=== PATIENT | female | born 1965 | race Caucasian/White ===

== ENCOUNTER → 2016-12-19 | Day surgery (SDC) | payer MEDICARE, MEDICAID ==
[~2016-12-19] VITALS: Ht 167.6 cm; Wt 130.1 kg
[~2016-12-19] MED LIST: *MEPERIDINE 25 MG INJ VIAL PERIprocedural Use ONLY ONE; ACETAMINOPHEN 1000 MG/100 ML VIAL IV ONE; ACETAMINOPHEN/HYDROcodone 325 MG/5 MG TAB PO PRN; BUPIVACAINE HCL PF 0.5% 30 ML VIAL ONE; CEPH-460 PO; CETI10 PO; CHLORHEXIDINE GLUCONATE 2 % 1 PACK (2 CLOTHS) TOPICAL PRN; COUM5TAB PO; DEPA500T3 PO; DEXAMETHASONE SOD PHOS 4 MG/ML VIAL ONE; DIVA250ER PO; DO NOT ADM ANY ANTICOAGULANT DRUGS PRN; DULC100C PO; FAMOTIDINE 20 MG/2 ML VIAL ONE; HYDR-3288 PO; ICOS1CAP PO; INSULIN HUMAN REGULAR 1,000 UNITS/10 ML VIAL SQ PRN; LACTATED RINGER'S 1000 ML INJ 1,000 ML IV ONE; LACTATED RINGER'S 1000 ML IV PRN; LOVA1TAB47 PO; LOVA20TA PO; MEPERIDINE HCL 50 MG/ML VIAL IM PRN; METOPROLOL TARTRATE 25 MG TAB PO PRN; MIDAZOLAM HCL 2 MG/2 ML VIAL ONE; MIRA25TA PO; NEOMYCIN/POLYMYXIN 1 ML G.U. IRRIGANT TOPICAL ONE; NEOSTIGMINE 3 MG/3 ML SYR IV ONE; OMEP20TA PO; ONDANSETRON HCL 4 MG/2 ML VIAL IV PUSH ONE; OXYC30TA62 PO; PHENYLEPH/NS 1000 MCG/10 ML SYR IV ONE; POVIDONE IODINE 5% (ANTISEPSIS KIT) 4 APPLICATIONS EACH NARE PRN; PROP40TA3 PO; PROPOFOL 200 MG/20 ML AMP IV ONE; SERO400T OR; SERO400T PO; SODIUM CHLORID 0.9% 500 ML IV PRN; TOPA100T11 PO; TOPI100 PO; WARF-21 PO; WARF7.5 PO; ceFAZolin 2 GM PREMIX 50 ML IV SCH; ePHEDrine/NS 25 MG/5 ML SYR IV ONE; fentaNYL CITRATE 250 MCG/5 ML AMP ONE
[2016-12-19 08:45] VITALS: BP 115/76; PULSE 75; RESP 20; O2SAT 95
[2016-12-19 09:36] LABS: BASOPHIL # 0.1 TH/MM3 (0-0.2); BASOPHIL % 1.1 % (0.0-2.0); EOSINOPHIL # 0.1 TH/MM3 (0-0.4); HEMATOCRIT 38.2 % (35.0-46.0); HEMO FLAGS DIFF FINAL; LYMPH % 51.9 % (9.0-44.0); MEAN CORPUSCULAR HGB CONC 33.7 % (32.0-36.0); MONO % 10.8 % (0.0-8.0); NEUT % 34.2 % (16.0-70.0); PLATELET COUNT 226 TH/MM3 (150-450); RED BLOOD COUNT 4.29 MIL/MM3 (4.00-5.30); RED CELL DISTRIBUTION WIDTH 13.9 % (11.6-17.2); WHITE BLOOD COUNT 5.7 TH/MM3 (4.0-11.0)
[2016-12-19 09:45] LABS: PROTHROMBIN TIME - PATIENT 10.5 SEC (9.8-11.6)
--- NOTE | 2016-12-19 11:40 | EKG ---
Date Performed: 12/19/2016 Time Performed: 08:48:51 PTAGE: 51 years EKG: Sinus rhythm LOW QRS VOLTAGE IN PRECORDIAL LEADS BORDERLINE ECG NO PREVIOUS TRACING DOCTOR: Ivan Gee Interpretating Date/Time 12/19/2016 11:38:40
[2016-12-19 14:40] VITALS: BP 118/78; PULSE 66; RESP 16; TEMP 96.8; O2SAT 94
--- NOTE | 2016-12-19 16:58 | MP ---
cc: DUANE NANCE III, M.D. DATE OF SURGERY: 12/19/2016. PREOPERATIVE DIAGNOSIS: 1. Left wrist pain. 2. Left wrist scapholunate dissociation, chronic. OPERATIVE PROCEDURE PERFORMED: 1. Left scaphoidectomy and four corner fusion. 2. Left posterior interosseous neurectomy. 3. Use of image intensifier. SURGEON: Duane Nance III, MD. DESCRIPTION OF THE PROCEDURE IN DETAIL: The patient was brought to the operating room and placed supine on the operating table. After the correct site and side of surgery were verified by members of each team in the room multiple times including the patient and myself and after adequate preoperative markings and preoperative written consent were verified by everyone and after adequate upper extremity block was achieved, the left upper extremity was prepped and draped in the traditional sterile surgical fashion. The mini C-arm was used to verify the site of the intended procedure. The limb was elevated and then gently exsanguinated and a highly placed well-padded axillary tourniquet was inflated to 200 mmHg for a total of 90 minutes. A longitudinal incision dorsally was made centered over Jer's tubercle and blunt dissection was then carried out through the subcutaneous tissue. Bipolar electrocautery was used as needed. The extensor retinaculum was then incised between the third and fourth dorsal compartments and the third dorsal arm was opened allowing the extensor pollicis longus tendon to be retracted. The fourth dorsal compartment contents were then retracted ulnarly. An ulnarly-based flap of the wrist capsule was then diagrammed. A 2 cm section of the posterior interosseous nerve was excised. The ulnarly based capsular flap was then opened exposing the proximal and most of the distal rows. Examination revealed the lunate fossa was intact with a normal-appearing cartilage as was the proximal aspect of the lunate. The proximal pole of the capitate however had significant cartilaginous erosion and there was exposed bone. At this point, I decided the best procedure would be the scaphoidectomy and a four-corner fusion. The scaphoid was then exposed and sharp dissection staying on the bone allowed for complete excision of the scaphoid which was then cleared of all its cartilage and cortical bone and cancellus bone used for bone graft. The capitate, hamate, lunate and triquetrum were then arranged in neutral extension and they were then held in place using of 0.045 cm K-wire and this was verified under mini C-arm. The articular surfaces between the four bones were cleared completely of all cartilage exposing cancellus bone in each. Using a [employer] Expode Fusion System using the larger of the two cups, the reamer was placed and used to make the bed for the cup. All of the screw holes were then filled using the mini C-arm to guide their placement. Bone graft was placed between all of the bones and deep to the cup. The mini C-arm was used multiple times throughout this part of this procedure. Passive range of motion and examination was then performed before bones moved as a unit. There was no impingement of the cup exposure posteriorly / dorsally. 60 degrees of motion was easily possible, which was more than the patient's wrist preoperatively. Thorough irrigation was performed with saline multiple times throughout this case. DBX putty was injected underneath deep to the cup. The dorsal two-thirds of the radial styloid was then excised using a rongeur taking care not to disrupt the RSC ligament. Thorough irrigation was performed again. Final x-rays were obtained. The wrist capsule was then closed using interrupted and running 2-0 Ethibond sutures. Thorough irrigation was performed again. The axillary tourniquet was released and the hand and all the fingers on the left became immediately soft, pink and warm and had brisk capillary refill of less than 2 seconds. There was no evidence of any active bleeding at all. The extensor tendons were allowed to fall back in place. The extensor retinaculum was repaired using interrupted 3-0 Ethibond sutures. There were no other anatomic abnormalities identified. Thorough irrigation was performed again. The subcutaneous tissues were reapproximated using deep 3-0 Vicryl sutures and the skin edges reapproximated using running 4-0 nylon suture. The hand and arm were thoroughly cleansed and dried. Betadine and Adaptic dressings were applied followed by a bulky well-padded, well-molded volar immobilizing splint leaving the fingers completely free. The patient was awakened from anesthesia and transported to the post-anesthesia care unit awake and in stable condition at the end of the case. Sponge, needle and instrument counts were correct at the end of the case as reported by the nurses in the room. MD GAUTAM Fraser III /12:58 PM /4:49 PM
== END | disposition home or self-care (01) ==
LOC: HSDC 08:04
PROVIDERS: ATTEND Orthopaedic Surgery Hand Surgery
DX: M25.532 Pain in left wrist (principal); I10 Essential (primary) hypertension; J44.9 Chronic obstructive pulmonary disease, unspecified; E78.5 Hyperlipidemia, unspecified; K21.9 Gastro-esophageal reflux disease without esophagitis; F31.9 Bipolar disorder, unspecified; M19.90 Unspecified osteoarthritis, unspecified site
CPT/HCPCS: 00300; 01830; 25800; 64772; 76000; 85025; 85610; 93005; C1713; J0131; J0690; J1100; J2175; J2250; J2370; J2405; J2710; J3010; J7120

== ENCOUNTER 2016-12-21 20:51 | Emergency (ER) | payer MEDICARE, MEDICAID ==
[~2016-12-21 20:51] MED LIST changes: -*MEPERIDINE 25 MG INJ VIAL PERIprocedural Use ONLY ONE; -ACETAMINOPHEN 1000 MG/100 ML VIAL IV ONE; -ACETAMINOPHEN/HYDROcodone 325 MG/5 MG TAB PO PRN; -BUPIVACAINE HCL PF 0.5% 30 ML VIAL ONE; -CETI10 PO; -CHLORHEXIDINE GLUCONATE 2 % 1 PACK (2 CLOTHS) TOPICAL PRN; -DEPA500T3 PO; -DEXAMETHASONE SOD PHOS 4 MG/ML VIAL ONE; -DO NOT ADM ANY ANTICOAGULANT DRUGS PRN; -DULC100C PO; -FAMOTIDINE 20 MG/2 ML VIAL ONE; -INSULIN HUMAN REGULAR 1,000 UNITS/10 ML VIAL SQ PRN; -LACTATED RINGER'S 1000 ML INJ 1,000 ML IV ONE; -LACTATED RINGER'S 1000 ML IV PRN; -LOVA1TAB47 PO; -MEPERIDINE HCL 50 MG/ML VIAL IM PRN; -METOPROLOL TARTRATE 25 MG TAB PO PRN; -MIDAZOLAM HCL 2 MG/2 ML VIAL ONE; -NEOMYCIN/POLYMYXIN 1 ML G.U. IRRIGANT TOPICAL ONE; -NEOSTIGMINE 3 MG/3 ML SYR IV ONE; -ONDANSETRON HCL 4 MG/2 ML VIAL IV PUSH ONE; -OXYC30TA62 PO; -PHENYLEPH/NS 1000 MCG/10 ML SYR IV ONE; -POVIDONE IODINE 5% (ANTISEPSIS KIT) 4 APPLICATIONS EACH NARE PRN; -PROPOFOL 200 MG/20 ML AMP IV ONE; -SERO400T OR; -SODIUM CHLORID 0.9% 500 ML IV PRN; -TOPI100 PO; -WARF7.5 PO; -ceFAZolin 2 GM PREMIX 50 ML IV SCH; -ePHEDrine/NS 25 MG/5 ML SYR IV ONE; -fentaNYL CITRATE 250 MCG/5 ML AMP ONE
[2016-12-21 20:55] VITALS: BP 182/94; PULSE 99; RESP 20; TEMP 99.7; O2SAT 96
[2016-12-21] MEDS ORDERED: OXYC30TA62 PO (22:26)
--- NOTE | 2016-12-21 22:29 | HHI.PR ---
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
[2016-12-21] MEDS ORDERED: oxyCODONE HCL 20 MG CONTROLLED RELEASE TAB PO ONE (22:30)
--- NOTE | 2016-12-21 22:56 | PD ---
HPI Chief Complaint: Pain: Acute or Chronic Time Seen by Provider: 22:23 Travel History International Travel<30 days: No Contact w/Intl Traveler<30days: No Traveled to known affect area: No History of Present Illness HPI Is a 51-year-old woman presents emergent from complaining of throbbing in her wrist. She recently had surgery with Dr. Nance on December 19, 2 days ago for chronic left wrist scapholunate dissociation where he performed a scaphoid active me and left posterior interosseous neurectomy. She probably called and was having pain and Dr. Nance need to be evaluated her on the weekend and referred her to the emergency department. The dressing was split and she feels more comfortable. He wrote her prescription for OxyContin. Of note patient is also on anticoagulation and has been unable to give herself her Lovenox. She is on Coumadin for previous CVA. History Past Medical History Narrative Medical COPD Previous CVA, on warfarin Hyperlipidemia Hypertension GERD Osteoarthritis Migraines Peripheral neuropathy Seizures Bipolar, depression : 5 Para: 5 Social History Alcohol Use: No Tobacco Use: No Allergies-Medications (Allergen,Severity, Reaction): Coded Allergies: No Known Allergies (Verified , 12/21/16) Reported Meds & Prescriptions Reported Meds & Active Scripts Active Oxycontin (Oxycodone HCl) 30 Mg Tab 30 Mg PO Q12HR Paxinos (Hydrocodone-Acetaminophen) 7.5-325 mg Tab 1 Tab PO Q4H PRN Keflex (Cephalexin) 500 Mg Cap 500 Mg PO Q6H Reported Coumadin (Warfarin) 5 Mg Tab 5 Mg PO EXCEPT WED Warfarin 7.5 Mg Tab 7.5 Mg PO WED Topamax (Topiramate) 100 Mg Tab 100 Mg PO DAILY Seroquel (Quetiapine Fumarate) 400 Mg Tab 400 Mg PO HS Propranolol (Propranolol HCl) 40 Mg Tab 40 Mg PO DAILY Lovastatin 20 Mg Tab 20 Mg PO DAILY Depakote ER (Divalproex Sodium) 250 Mg Lan 750 Mg PO BID Vascepa (Icosapent) 1 Gm Cap 2 Gm PO BID Omeprazole 20 Mg Tab 20 Mg PO DAILY Myrbetriq (Mirabegron) 25 Mg Tab 25 Mg PO DAILY Review of Systems Except as stated in HPI: all other systems reviewed are Neg Physical Exam Narrative GENERAL: Well-appearing 51-year-old woman, no acute distress. SKIN: Warm and dry. CARDIOVASCULAR: Warm and well perfused. RESPIRATORY: Normal rate and effort. MUSCULOSKELETAL: Wrist splinted. NEUROLOGICAL: Awake and alert. No gross deficits. Data Data Last Documented VS Vital Signs Date Time Temp Pulse Resp B/P Pulse Ox O2 Delivery O2 Flow Rate FiO2 12/21/16 22:21 18 12/21/16 20:55 99.7 99 182/94 96 Room Air Orders Prothrombin Time / Inr (Pt) (12/21/16 22:29) Oxycodone Sr (Oxycontin Cr) (12/21/16 22:30) Hydromorphone Pf Inj (Dilaudid Pf Inj) (12/21/16 23:15) Enoxaparin Inj (Lovenox Inj) (12/21/16 23:45) Labs Laboratory Tests Test 12/21/16 21:32 Prothrombin Time 12.4 SEC Prothromb Time International 1.1 RATIO Ratio MDM Medical Decision Making Medical Screen Exam Complete: Yes Emergency Medical Condition: Yes Differential Diagnosis Wrist pain, hypercoagulable state, CVA Narrative Course Medical decision-making 51-year-old woman with a history of wrist injury, status post recent surgery, with what sounds like protein S deficiency and previous CVA is on warfarin. She does be bridging her warfarin with Lovenox shots. She apparently is minimally give herself the shots because of not being abused one arm. We'll check an INR, reassess. FINAL: Supple 51-year-old woman with pain in her left wrist. This is been taking care of. She also has factor protein S deficiency and multiple previous strokes and needs to be on anticoagulation. She cannot give herself her Lovenox injection that she is using the bridge to Coumadin because of her hand surgery and only having one useful hand. She reports there is no one else at home to give her shots. She will need home health come out to give her shots in the interim to prevent stroke. We'll give her a dose here. She reports that Dr. Nance is setting up home health for her. We have no case management right now. I will leave a message for case management, we'll place home health order and [id number]. Diagnosis Primary Impression: Anticoagulated on Coumadin Additional Impression: Scapholunate advanced collapse of left wrist Additional Instructions: Follow-up with case management tomorrow to arrange for home health as discussed. Return to the emergency department for any new or worsening symptoms. Scripts Oxycodone ER (Oxycontin)30 Mg Tab30 Mg PO Q12HR #4 TAB Ref 0 Prov:Duane Nance III, MD 12/21/16 Disposition: 01 DISCHARGE HOME Condition: Stable Shawn Gutierrez MD Dec 21, 2016 22:56
[2016-12-21] MEDS ORDERED: HYDROmorphone HCL PF 1 MG/ML VIAL IM ONE (23:15)
[2016-12-21 23:30] LABS: INTERNATIONAL NORMALIZED RATIO 1.1 RATIO; PROTHROMBIN TIME - PATIENT 12.4 SEC (9.8-11.6)
[2016-12-21] MEDS ORDERED: ENOXAPARIN SODIUM 150 MG/ML SYRINGE SQ ONE (23:45)
--- NOTE | 2016-12-21 23:55 | HHI.FF ---
Face to Face Verification Diagnosis: (1) Scapho-lunate dissociation (2) Protein S deficiency (3) Anticoagulated on Coumadin Home Health Nursing Order: Medical education Instructions: Administer SQ Lovenox I have seen patient Mari Kirk on 12/21/16. My clinical findings support the need for the requested home health care services because: Ltd mobility - disease progression Limited ability to care for self Injectable med education/admin I certify that my clinical findings support that this patient is homebound because: Need for psychosocial assistance Shawn Gutierrez MD Dec 21, 2016 23:55
[2016-12-27] MEDS ORDERED: NORC5TAB PO (09:33)
[2016-12-27] MEDS ORDERED: LEVA500T20 PO (09:33)
== END 2016-12-22 00:05 | disposition home or self-care (01) ==
LOC: NEPC 20:51
DX: I97.89 Other postprocedural complications and disorders of the circulatory system, not elsewhere classified (principal); M21.832 Other specified acquired deformities of left forearm; D68.59 Other primary thrombophilia; Z79.01 Long term (current) use of anticoagulants; I10 Essential (primary) hypertension; E78.5 Hyperlipidemia, unspecified; Z87.09 Personal history of other diseases of the respiratory system; Z86.79 Personal history of other diseases of the circulatory system; Z87.19 Personal history of other diseases of the digestive system; Z87.39 Personal history of other diseases of the musculoskeletal system and connective tissue; Z86.69 Personal history of other diseases of the nervous system and sense organs; Z86.59 Personal history of other mental and behavioral disorders
CPT/HCPCS: 85610; 96372; 99284; J1170; J1650

== ENCOUNTER → 2017-03-18 | Day surgery (SDC) | payer MEDICARE ==
[~2017-03-18] MED LIST changes: +CELE40TA PO; -CEPH-460 PO; +CHLORHEXIDINE GLUCONATE 2 % 1 PACK (2 CLOTHS) TOPICAL PRN; +DIAZ5 PO; +DO NOT ADM ANY ANTICOAGULANT DRUGS PRN; +DULO1CAP3 PO; +EPINEPHrine HCL (1:1000) 1 MG/ML VIAL ONE; -HYDR-3288 PO; +HYDR-3583 PO; +INSULIN HUMAN REGULAR 1,000 UNITS/10 ML VIAL SQ PRN; +LACTATED RINGER'S 1000 ML IV PRN; +LIDOCAINE HCL 1% PF 5 ML AMPULE OTHER ONE; +LIDOCAINE HCL 2% PF SOLN 10 ML VIAL ONE; -LOVA20TA PO; +METOPROLOL TARTRATE 25 MG TAB PO PRN; +POVIDONE IODINE 5% (ANTISEPSIS KIT) 4 APPLICATIONS EACH NARE PRN; +PROPOFOL 200 MG/20 ML AMP IV ONE; +RESP: ALBUTEROL CONC 2.5 MG/0.5 ML NEB ONE; +SERO300T PO; -SERO400T PO; +SODIUM CHLORID 0.9% 500 ML IV PRN; +SODIUM CHLORIDE 0.9% 20 ML VIAL ONE; +SUCCINYLCHOLINE CHLORIDE 100 MG/5 ML SYRINGE IV PUSH ONE
[2017-03-18 07:29] LABS: AUTOMATED NEUTROPHIL # 1.9 TH/MM3 (1.8-7.7); BASOPHIL # 0.1 TH/MM3 (0-0.2); BASOPHIL % 1.2 % (0.0-2.0); EOSINOPHIL # 0.2 TH/MM3 (0-0.4); EOSINOPHIL % 2.5 % (0.0-4.0); HEMO FLAGS DIFF FINAL; LYMPH % 57.2 % (9.0-44.0); LYMPHOCYTE # 3.5 TH/MM3 (1.0-4.8); MEAN CORPUSCULAR HEMOGLOBIN 30.4 PG (27.0-34.0); MEAN CORPUSCULAR HGB CONC 33.8 % (32.0-36.0); MONO % 8.3 % (0.0-8.0); NEUT % 30.8 % (16.0-70.0); PLATELET COUNT 198 TH/MM3 (150-450); RED BLOOD COUNT 4.77 MIL/MM3 (4.00-5.30); RED CELL DISTRIBUTION WIDTH 13.5 % (11.6-17.2); WHITE BLOOD COUNT 6.1 TH/MM3 (4.0-11.0)
[2017-03-18 07:37] LABS: APTT (PATIENT) 29.2 SEC (24.3-30.1); PROTHROMBIN TIME - PATIENT 11.5 SEC (9.8-11.6)
--- NOTE | 2017-03-18 09:51 | MR ---
cc: ROMARIO DOSS M.D. DATE 03/18/2017 PROCEDURE PERFORMED Fiberoptic bronchoscopy flexible REASON FOR BRONCHOSCOPY Upper airway obstruction suspect, excess mucoid secretion and plugging. PROCEDURE Fiberoptic bronchoscopy performed via LMA. Vocal cords intact. Trachea mildly hyperemic, some mild posterior narrowing in the upper trachea is noted, however, not significant. The roxy is sharp. The right mainstem bronchus, right upper, middle and lower lobe, left main bronchus, left upper lower lobe inspected. No obstruction or mass lesion seen. Mucous plugs thick whitish in color removed. Procedure well tolerated. Washings obtained from both sides of the tracheobronchial tree for routine TB, fungal cultures, as well as cytological exam. The patient transferred to the recovery room in stable condition. IMPRESSION 1. Moderate tracheobronchitis 2. Excess mucoid secretion and plugging. 3. No significant upper airway obstruction. 4. Procedure well tolerated. 5. The patient transferred to recovery in stable condition. Romario Doss MD WWW/WILLIAM /9:35 AM /9:41 AM
--- NOTE | 2017-03-18 10:03 | EKG ---
Date Performed: 03/18/2017 Time Performed: 07:55:38 PTAGE: 51 years EKG: SINUS BRADYCARDIA BORDERLINE ECG PREVIOUS TRACING : 12/19/2016 08.48 Compared to prior tracing no significant change DOCTOR: Yimi Maurer Interpretating Date/Time 03/18/2017 10:00:00
[2017-03-18 10:47] VITALS: BP 120/80; PULSE 79; RESP 20; TEMP 97; O2SAT 96
== END | disposition home or self-care (01) ==
LOC: HSDC 06:19
PROVIDERS: ATTEND Internal Medicine Sleep Medicine
DX: J40 Bronchitis, not specified as acute or chronic (principal); R00.1 Bradycardia, unspecified; I10 Essential (primary) hypertension; E78.5 Hyperlipidemia, unspecified; J44.9 Chronic obstructive pulmonary disease, unspecified; G47.33 Obstructive sleep apnea (adult) (pediatric); K21.9 Gastro-esophageal reflux disease without esophagitis; F32.9 Major depressive disorder, single episode, unspecified; Z79.899 Other long term (current) drug therapy; Z79.01 Long term (current) use of anticoagulants
CPT/HCPCS: 85025; 85610; 85730; 87015; 87070; 87102; 87116; 87205; 87206; 88112; 88305; 93005; 94664; J0171; J0330; J3010; J7120; J7611

== ENCOUNTER → 2017-06-16 | Outpatient (CLI) | payer MEDICARE ==
[~2017-06-16] MED LIST changes: -CHLORHEXIDINE GLUCONATE 2 % 1 PACK (2 CLOTHS) TOPICAL PRN; +CYMB60CA PO; -DO NOT ADM ANY ANTICOAGULANT DRUGS PRN; -EPINEPHrine HCL (1:1000) 1 MG/ML VIAL ONE; -INSULIN HUMAN REGULAR 1,000 UNITS/10 ML VIAL SQ PRN; -LACTATED RINGER'S 1000 ML IV PRN; -LIDOCAINE HCL 1% PF 5 ML AMPULE OTHER ONE; -LIDOCAINE HCL 2% PF SOLN 10 ML VIAL ONE; -METOPROLOL TARTRATE 25 MG TAB PO PRN; -OMEP20TA PO; +OMEP20TA93 PO; -POVIDONE IODINE 5% (ANTISEPSIS KIT) 4 APPLICATIONS EACH NARE PRN; -PROPOFOL 200 MG/20 ML AMP IV ONE; -RESP: ALBUTEROL CONC 2.5 MG/0.5 ML NEB ONE; -SODIUM CHLORID 0.9% 500 ML IV PRN; -SODIUM CHLORIDE 0.9% 20 ML VIAL ONE; -SUCCINYLCHOLINE CHLORIDE 100 MG/5 ML SYRINGE IV PUSH ONE; -TOPA100T11 PO; +TOPI100 PO
[2017-06-16 10:59] LABS: ALBUMIN 3.7 GM/DL (3.4-5.0); ALT (GPT) 29 U/L (10-53); AST (GOT) 12 U/L (15-37); BICARBONATE 26.2 MEQ/L (21.0-32.0); BLOOD UREA NITROGEN 13 MG/DL (7-18); CALCIUM 9.3 MG/DL (8.5-10.1); CHLORIDE 107 MEQ/L (98-107); GLOMERULAR FILTRATION RATE 88 ML/MIN (>89); GLUCOSE,FASTING 90 MG/DL (74-99); SODIUM (NA) 140 MEQ/L (136-145)
[2017-06-16 11:02] LABS: ALKALINE PHOSPHATASE 72 U/L (45-117); TOTAL BILIRUBIN ADULT 0.2 MG/DL (0.2-1.0); TOTAL PROTEIN 7.8 GM/DL (6.4-8.2)
== END ==
LOC: CLAB 10:08
PROVIDERS: ATTEND Podiatrist Primary Podiatric Medicine
DX: B35.1 Tinea unguium (principal); Z51.81 Encounter for therapeutic drug level monitoring
CPT/HCPCS: 36415; 80053

== ENCOUNTER → 2017-06-30 | Outpatient (CLI) | payer MEDICARE, OTHER ==
[2017-06-30 08:43] LABS: AUTOMATED NEUTROPHIL # 3.6 TH/MM3 (1.8-7.7); BASOPHIL # 0.1 TH/MM3 (0-0.2); BASOPHIL % 1.1 % (0.0-2.0); EOSINOPHIL # 0.2 TH/MM3 (0-0.4); EOSINOPHIL % 2.3 % (0.0-4.0); HEMATOCRIT 40.2 % (35.0-46.0); HEMO FLAGS DIFF FINAL; HEMOGLOBIN 13.5 GM/DL (11.6-15.3); LYMPHOCYTE # 3.8 TH/MM3 (1.0-4.8); MEAN CELL VOLUME 92.3 FL (80.0-100.0); MEAN CORPUSCULAR HGB CONC 33.6 % (32.0-36.0); MEAN PLATELET VOLUME 7.4 FL (7.0-11.0); MONOCYTE # 0.6 TH/MM3 (0-0.9); NEUT % 43.6 % (16.0-70.0); PLATELET COUNT 229 TH/MM3 (150-450); RED BLOOD COUNT 4.36 MIL/MM3 (4.00-5.30); RED CELL DISTRIBUTION WIDTH 13.6 % (11.6-17.2); WHITE BLOOD COUNT 8.3 TH/MM3 (4.0-11.0)
[2017-06-30 08:48] LABS: APTT (PATIENT) 37.8 SEC (24.3-30.1); INTERNATIONAL NORMALIZED RATIO 2.2 RATIO; PROTHROMBIN TIME - PATIENT 22.2 SEC (9.8-11.6)
[2017-06-30 10:24] LABS: ALKALINE PHOSPHATASE 62 U/L (45-117); HDL CHOLESTEROL 32.9 MG/DL (40.0-60.0); TOTAL BILIRUBIN ADULT 0.2 MG/DL (0.2-1.0); TOTAL PROTEIN 7.7 GM/DL (6.4-8.2); TRIGLYCERIDES 292 MG/DL (42-150)
[2017-06-30 10:29] LABS: ALBUMIN 3.5 GM/DL (3.4-5.0); ALT (GPT) 19 U/L (10-53); ANION GAP 7 MEQ/L (5-15); AST (GOT) 30 U/L (15-37); BICARBONATE 27.5 MEQ/L (21.0-32.0); BLOOD UREA NITROGEN 19 MG/DL (7-18); CALCIUM 8.5 MG/DL (8.5-10.1); CHLORIDE 108 MEQ/L (98-107); CHOLESTEROL 207 MG/DL (120-200); CHOLESTEROL/ HDL RATIO 6.29 RATIO; CREATININE 0.64 MG/DL (0.50-1.00); GLOMERULAR FILTRATION RATE 97 ML/MIN (>89); GLUCOSE,FASTING 89 MG/DL (74-99); LDL CHOLESTEROL 116 MG/DL (0-99); POTASSIUM 4.5 MEQ/L (3.5-5.1); SODIUM (NA) 142 MEQ/L (136-145)
[2017-06-30 16:49] LABS: HEMOGLOBIN A1C 5.6 % (4.3-6.0); HEMOGLOBIN A1a 1.1 %; HEMOGLOBIN Ao 84.8 %; HEMOGLOBIN F 1.3 %; HEMOGLOBIN P3 3.8 %
== END ==
LOC: HCAV 07:40
DX: Z01.810 Encounter for preprocedural cardiovascular examination (principal); I10 Essential (primary) hypertension; R73.01 Impaired fasting glucose; E78.2 Mixed hyperlipidemia; E66.01 Morbid (severe) obesity due to excess calories
CPT/HCPCS: 36415; 80053; 80061; 83036; 85025; 85610; 85730; 93005

== ENCOUNTER → 2017-07-15 | Outpatient (CLI) | payer MEDICARE, MEDICAID ==
[~2017-07-15] MED LIST changes: +BACT800T5 PO; -CELE40TA PO; +CEPH-460 PO; +ENOX30P SQ; +PERC10TA27 PO
[2017-07-17 02:06] LABS: URINE ANABASINE <2.0 ng/mL (<2.0); URINE COTININE <5.0 ng/mL (<5.0); URINE NICOTINE <5.0 ng/mL (<5.0); URINE NORNICOTINE <2.0 ng/mL (<2.0)
== END ==
LOC: CPRE 13:05
PROVIDERS: ATTEND Podiatrist Primary Podiatric Medicine
DX: Z01.812 Encounter for preprocedural laboratory examination (principal); M20.5X2 Other deformities of toe(s) (acquired), left foot
CPT/HCPCS: 80323; G0480

== ENCOUNTER → 2017-07-18 | Day surgery (SDC) | payer MEDICARE, MEDICAID ==
[~2017-07-18] VITALS: Ht 167.6 cm; Wt 121.8 kg
[~2017-07-18] MED LIST changes: +*morphine SULFATE 10 MG/ML PERIprocedure ONLY ONE; +ACETAMINOPHEN 1000 MG/100 ML 100 ML IV ONE; -BACT800T5 PO; +BUPIVACAINE HCL PF 0.5% 30 ML VIAL ONE; -CEPH-460 PO; +CHLORHEXIDINE GLUCONATE 2 % 1 PACK (2 CLOTHS) TOPICAL PRN; -CYMB60CA PO; +DEXAMETHASONE SOD PHOS 4 MG/ML VIAL IV ONE; +DO NOT ADM ANY ANTICOAGULANT DRUGS PRN; +FAMOTIDINE 20 MG/2 ML VIAL ONE; -HYDR-3583 PO; +IBUPROFEN 400 MG TAB PO PRN; +INSULIN HUMAN REGULAR 1,000 UNITS/10 ML VIAL SQ PRN; +LACTATED RINGER'S 1000 ML IV PRN; +LIDOCAINE HCL 1% PF 5 ML SYRINGE OTHER ONE; +METOPROLOL TARTRATE 25 MG TAB PO PRN; +MIDAZOLAM HCL 2 MG/2 ML VIAL ONE; +MORPHINE SULFATE 2 MG/ML INJ IV PUSH PRN; +MORPHINE SULFATE 4 MG/ML INJ ONE; +NALOXONE HCL 0.4 MG/ML AMP IV PUSH PRN; +ONDANSETRON HCL 4 MG/2 ML VIAL IV ONE; +POVIDONE IODINE 5% (ANTISEPSIS KIT) 4 APPLICATIONS EACH NARE PRN; +PROPOFOL 200 MG/20 ML AMP IV ONE; +Post-op Orders (for Pharmacy) XX ONE; +SODIUM CHLORID 0.9% 500 ML IV PRN; +SODIUM CHLORIDE 0.9% FLUSH 10 ML FLUSH IV FLUSH PRN; +SODIUM CHLORIDE 0.9% FLUSH 10 ML FLUSH IV FLUSH SCH; +ceFAZolin 2 GM PREMIX 50 ML IV SCH; +oxyCODONE/ACETAMINOPHEN 10 MG/325 MG TAB PO PRN; +oxyCODONE/ACETAMINOPHEN 5 MG/325 MG TAB PO PRN
[2017-07-18 08:06] LABS: INTERNATIONAL NORMALIZED RATIO 1.2 RATIO; PROTHROMBIN TIME - PATIENT 11.8 SEC (9.8-11.6)
--- NOTE | 2017-07-18 10:03 | PD.OP ---
Operative Report Date of Surgery: Jul 18, 2017 Preoperative Diagnosis: (1) Hallux limitus of left foot Postoperative Diagnosis: (1) Hallux limitus of left foot Procedure: Mathur bunionectomy left foot Anesthesia: General inhalation Surgeon: Pepe Kothari D.P.M. Clinical Research Associate(s): LAI Operation and Findings: Patient is brought to the OR and placed on the OR table in a supine position. A pneumatic ankle cuff was placed around the left ankle after adequate wearable padding. Patient was given general inhalation anesthesia. The left foot was prepped and draped in the usual sterile manner. The left foot was elevated above the operating table for a period of 3 minutes and the pneumatic ankle cuff was inflated to 250 mmHg. The left foot was lowered to the operating table and attention was directed to the left first MPJ. It was noted that the patient had a bunion deformity and grinding and crepitus at the first MPJ consistent with degenerative joint disease. At this time a 7 cm linear incision was made medial to the extensor hallucis longus tendon on the dorsal medial aspect of the left foot. The incision was deepened using sharp and blunt dissection taking care to tie off any superficial bleeding vessels and retracting all vital structures. Incision was deepened to the capsule and periosteum of the first MPJ ureters and using sharp and blunt dissection the first MPJ was freed up and delivered into the wound. Using an oscillating saw the first third of the proximal phalanx base wasf dissected and removed from the surgical site. Should be noted now that the first MPJ had free range of motion without any crepitus. Attention was directed to the dorsal medial bony eminence on the head of the first metatarsal and using an oscillating saw the bony eminence was resected. The area was flushed with copious amounts of sterile saline. Should be noted the hallux sat in a more correct anatomical position with good range of motion at the MPJ. Subcutaneous and capsular edges were closed with 2-0 Vicryl. Skin edges were reapproximated and closed with 3- 0 nylon. Estimated blood loss was less than 5 cc. The pneumatic ankle cuff was deflated and it should be noted that the vascular status returned to all digits of the left foot. Surgical cuff time was noted to be 33 minutes. Sponge and instrument count were noted to be correct. The surgical site was infiltrated with 20 cc of 0.5% Marcaine plain for postoperative anesthesia. The surgical incision site was dressed with Adaptic 4 x 4's and Js followed by an Nadir wrap. Patient tolerated the procedures and anesthesia well and left the OR to PACU in apparent satisfactory conditions without vital signs stable and the vascular status intact to all digits of the left foot. Pepe Kothari DPM Jul 18, 2017 10:03
--- NOTE | 2017-07-18 11:02 | RADRPT ---
EXAM DATE/TIME: 07/18/2017 10:10 [facility] COMPARISON: No previous studies available for comparison. INDICATIONS : Post op left foot surgery. MEDICAL HISTORY : None. SURGICAL HISTORY : None. ENCOUNTER: Initial ACUITY: 1 day PAIN SCORE: 8/10 LOCATION: Left Foot. FINDINGS: Postop resection portion of the proximal phalanx first toe. No radiopaque foreign bodies. CONCLUSION: Postoperative changes as above. Nirmal Tellez MD FACR on July 18, 2017 at 10:59 Board Certified Radiologist. This report was verified electronically.
[2017-07-18 11:30] VITALS: BP 140/80; PULSE 73; RESP 20; TEMP 96.9; O2SAT 96
== END | disposition home or self-care (01) ==
LOC: HSDC 06:36
PROVIDERS: ATTEND Podiatrist Primary Podiatric Medicine
DX: M20.5X2 Other deformities of toe(s) (acquired), left foot (principal); Z79.01 Long term (current) use of anticoagulants; Z79.899 Other long term (current) drug therapy
CPT/HCPCS: 01480; 28292; 73630; 85610; J0131; J1100; J2250; J2270; J2405; J3010; J7120; L3260

== ENCOUNTER 2017-07-24 17:28 | Emergency (ER) | payer MEDICARE, MEDICAID ==
[~2017-07-24] VITALS: Ht 165.1 cm; Wt 120.0 kg
[~2017-07-24 17:28] MED LIST changes: -*morphine SULFATE 10 MG/ML PERIprocedure ONLY ONE; -ACETAMINOPHEN 1000 MG/100 ML 100 ML IV ONE; -BUPIVACAINE HCL PF 0.5% 30 ML VIAL ONE; -CHLORHEXIDINE GLUCONATE 2 % 1 PACK (2 CLOTHS) TOPICAL PRN; -DEXAMETHASONE SOD PHOS 4 MG/ML VIAL IV ONE; -DO NOT ADM ANY ANTICOAGULANT DRUGS PRN; -FAMOTIDINE 20 MG/2 ML VIAL ONE; -IBUPROFEN 400 MG TAB PO PRN; -INSULIN HUMAN REGULAR 1,000 UNITS/10 ML VIAL SQ PRN; -LACTATED RINGER'S 1000 ML IV PRN; -LIDOCAINE HCL 1% PF 5 ML SYRINGE OTHER ONE; -METOPROLOL TARTRATE 25 MG TAB PO PRN; -MIDAZOLAM HCL 2 MG/2 ML VIAL ONE; -MORPHINE SULFATE 2 MG/ML INJ IV PUSH PRN; -MORPHINE SULFATE 4 MG/ML INJ ONE; -NALOXONE HCL 0.4 MG/ML AMP IV PUSH PRN; -ONDANSETRON HCL 4 MG/2 ML VIAL IV ONE; -POVIDONE IODINE 5% (ANTISEPSIS KIT) 4 APPLICATIONS EACH NARE PRN; -PROPOFOL 200 MG/20 ML AMP IV ONE; -Post-op Orders (for Pharmacy) XX ONE; -SODIUM CHLORID 0.9% 500 ML IV PRN; -SODIUM CHLORIDE 0.9% FLUSH 10 ML FLUSH IV FLUSH PRN; -SODIUM CHLORIDE 0.9% FLUSH 10 ML FLUSH IV FLUSH SCH; -ceFAZolin 2 GM PREMIX 50 ML IV SCH; -oxyCODONE/ACETAMINOPHEN 10 MG/325 MG TAB PO PRN; -oxyCODONE/ACETAMINOPHEN 5 MG/325 MG TAB PO PRN
[2017-07-24 17:30] VITALS: BP 125/94; PULSE 81; RESP 16; TEMP 98.8; O2SAT 95
[2017-07-24 20:16] VITALS: BP 135/92; PULSE 79; RESP 22; TEMP 98.8; O2SAT 97
[2017-07-24] MEDS ORDERED: MORPHINE SULFATE 2 MG/ML INJ IV PUSH ONE (21:00)
[2017-07-24] MEDS ORDERED: SODIUM CHLORIDE 0.9% FLUSH 10 ML FLUSH IVF PRN (21:00)
--- NOTE | 2017-07-24 21:07 | PD ---
HPI Chief Complaint: Pain: Acute or Chronic Time Seen by Provider: 20:40 Travel History International Travel<30 days: No Contact w/Intl Traveler<30days: No Traveled to known affect area: No History of Present Illness HPI Patient 52-year-old female had a bone spur operated on [address] Kothari and since initial surgery she had some pain but the pain is gradually gotten progressively worse over the past few days, she called Dr. Kothari's office and he apparently is on extended leave of absence. Patient states the pain is all around her left great toe at the incision she is also noticed some redness and swelling. No fevers, no red streaks of the legs, no leg swelling, no chest pain or shortness of breath. PFSH Past Medical History Asthma: Yes Bipolar Disorder: Yes Anxiety: Yes Cancer: Yes (hx of cervical cancer) Cardiovascular Problems: No COPD: Yes Cerebrovascular Accident: Yes (X2) Diabetes: No Diminished Hearing: No Endocrine: No Gastrointestinal Disorders: Yes (reflux; IBS) GERD: Yes Genitourinary: Yes (INCONT. FROM MESH IMPLANT) Hepatitis: No Hiatal Hernia: Yes Immune Disorder: No Musculoskeletal: Yes (OA) Neurologic: Yes (SEIZURES, 2 STROKES POOR MEMORY ) Psychiatric: Yes (OCD,. BIPOLAR, ANXIETY, DEPRESSION) Reproductive: No Respiratory: Yes (COPD, CHRONIC COUGH) Immunizations Current: Yes Seizures: Yes Thyroid Disease: No : 5 Para: 5 Miscarriage: 0 : 0 Past Surgical History Abdominal Surgery: No AICD: No Body Medical Devices: LEFT LEG BERTA AND PLATE, BLADDER MESH, L WRIST HARDWARE Cardiac Surgery: No Section: Yes (X 5) Ear Surgery: No Endocrine Surgery: No Eye Surgery: No Genitourinary Surgery: Yes (BLADDER REPAIR WITH MESH IMPLANTS) Gynecologic Surgery: Yes (total hysterectomy,novasure ablation, X5) Joint Replacement: No Oral Surgery: No Pacemaker: No Thoracic Surgery: No Other Surgery: Yes Social History Alcohol Use: No Tobacco Use: No Substance Use: Yes (MARIJUANA) Allergies-Medications (Allergen,Severity, Reaction): Coded Allergies: adhesive tape (Verified Allergy, Unknown, paper tape, 07/24/17) Reported Meds & Prescriptions Reported Meds & Active Scripts Active Percocet (Oxycodone-Acetaminophen) 10-325 mg Tab 1 Tab PO Q6H PRN Keflex (Cephalexin) 500 Mg Cap 500 Mg PO Q6H 10 Days Bactrim DS (Sulfamethoxazole-Trimethoprim) 800-160 Mg Tab 1 Tab PO BID 10 Days Percocet (Oxycodone-Acetaminophen) 10-325 mg Tab 1 Tab PO Q4H PRN Reported Valium (Diazepam) 5 Mg Tab 5 Mg PO TID PRN Duloxetine DR (Duloxetine HCl) 60 Mg Capdr 60 Mg PO DAILY Seroquel (Quetiapine Fumarate) 300 Mg Tab 600 Mg PO HS Coumadin (Warfarin) 5 Mg Tab 5 Mg PO EXCEPT WED Warfarin 7.5 Mg Tab 7.5 Mg PO WED Topamax (Topiramate) 100 Mg Tab 100 Mg PO BID Propranolol (Propranolol HCl) 40 Mg Tab 40 Mg PO BID Depakote ER (Divalproex Sodium) 250 Mg Lan 750 Mg PO BID Vascepa (Icosapent) 1 Gm Cap 2 Gm PO BID Omeprazole 20 Mg Tab 20 Mg PO DAILY Myrbetriq (Mirabegron) 25 Mg Tab 25 Mg PO DAILY Review of Systems Except as stated in HPI: all other systems reviewed are Neg Physical Exam Narrative GENERAL: Well-developed, well-nourished, appears uncomfortable but nontoxic. SKIN: Focused skin assessment warm/dry. On the dorsum of her left foot over the great toe there are several stitches in place, there is some mild edema of the skin as well as some erythema consistent with a mild to moderate cellulitis , she is appropriately tender to palpation, Refill is brisk in all digits of the lower extremity, the skin is dirty appears as though she is not taking great hygiene. HEAD: Atraumatic. Normocephalic. EYES: Pupils equal and round. No scleral icterus. No injection or drainage. ENT: No nasal bleeding or discharge. Mucous membranes pink and moist. NECK: Trachea midline. No JVD. CARDIOVASCULAR: Regular rate and rhythm. No murmur appreciated. RESPIRATORY: No accessory muscle use. Clear to auscultation. Breath sounds equal bilaterally. GASTROINTESTINAL: Abdomen soft, non-tender, nondistended. Hepatic and splenic margins not palpable. MUSCULOSKELETAL: No obvious deformities. No clubbing. No cyanosis. No edema. NEUROLOGICAL: Awake and alert. No obvious cranial nerve deficits. Motor grossly within normal limits. Normal speech. PSYCHIATRIC: Appropriate mood and affect; insight and judgment normal. Data Data Last Documented VS Vital Signs Date Time Temp Pulse Resp B/P (MAP) Pulse Ox O2 Delivery O2 Flow Rate FiO2 07/24/17 23:18 07/24/17 20:16 98.8 79 22 97 Room Air Orders Orders Complete Blood Count With Diff (07/24/17 20:51) Comprehensive Metabolic Panel (07/24/17 20:51) Westergren Sedimentation Rate (07/24/17 20:51) C-Reactive Protein (Crp) (07/24/17 20:51) Prothrombin Time / Inr (Pt) (07/24/17 20:51) Act Partial Throm Time (Ptt) (07/24/17 20:51) Ecg Monitoring (07/24/17 20:51) Iv Access Insert/Monitor (07/24/17 20:51) Oximetry (07/24/17 20:51) Sodium Chloride 0.9% Flush (Ns Flush) (07/24/17 21:00) Morphine Inj (Morphine Inj) (07/24/17 21:00) Ed Discharge Order (07/24/17 22:39) Labs Laboratory Tests Test 07/24/17 21:00 White Blood Count 6.7 TH/MM3 Red Blood Count 4.70 MIL/MM3 Hemoglobin 14.3 GM/DL Hematocrit 42.2 % Mean Corpuscular Volume 89.8 FL Mean Corpuscular Hemoglobin 30.5 PG Mean Corpuscular Hemoglobin Concent 34.0 % Red Cell Distribution Width 13.2 % Platelet Count 278 TH/MM3 Mean Platelet Volume 7.7 FL Neutrophils (%) (Auto) 38.8 % Lymphocytes (%) (Auto) 50.0 % Monocytes (%) (Auto) 7.3 % Eosinophils (%) (Auto) 3.0 % Basophils (%) (Auto) 0.9 % Neutrophils # (Auto) 2.6 TH/MM3 Lymphocytes # (Auto) 3.4 TH/MM3 Monocytes # (Auto) 0.5 TH/MM3 Eosinophils # (Auto) 0.2 TH/MM3 Basophils # (Auto) 0.1 TH/MM3 CBC Comment DIFF FINAL Differential Comment Erythrocyte Sedimentation Rate 13 mm/hr Prothrombin Time 24.4 SEC Prothromb Time International Ratio 2.4 RATIO Activated Partial Thromboplast Time 37.4 SEC Blood Urea Nitrogen 11 MG/DL Creatinine 0.69 MG/DL Random Glucose 95 MG/DL Total Protein 8.0 GM/DL Albumin 3.7 GM/DL Calcium Level 9.1 MG/DL Alkaline Phosphatase 66 U/L Aspartate Amino Transf (AST/SGOT) 14 U/L Alanine Aminotransferase (ALT/SGPT) 22 U/L Total Bilirubin 0.2 MG/DL Sodium Level 139 MEQ/L Potassium Level 3.8 MEQ/L Chloride Level 108 MEQ/L Carbon Dioxide Level 22.8 MEQ/L Anion Gap 8 MEQ/L Estimat Glomerular Filtration Rate 89 ML/MIN C-Reactive Protein 0.98 MG/DL [facility] Medical Decision Making Medical Screen Exam Complete: Yes Emergency Medical Condition: Yes Differential Diagnosis Cellulitis, postoperative pain, postoperative infection, normal wound healing, osteomyelitis unlikely. Narrative Course Patient room in the emergency department complaint symptoms consistent with a mild to moderate cellulitis and postoperative wound infection, patient's labs are wholly reassuring, ESR and CRP are normal, counts are normal. Given narcotics and is feeling better, the patient was discussed briefly with Dr. Haro and I discussed that it looks like a mild cellulitis, she is not in the same practice as Dr. Kothari and states that Dr. Cortez is covering for some of his patients as he is out on sick leave. Discussed this with the patient and recommended outpatient antibiotics and follow-up with the below providers. Discussed returning to criterion symptomatic management. She is stable for discharge Diagnosis Primary Impression: Post-operative pain Additional Impression: Cellulitis, toe Referrals: Angie Hurtado MD, Laura M. DPM Additional Instructions: Follow-up with Dr. Hurtado by phone in the morning, she is helping out with Dr. Kothari patient's. You should also call Dr. Kothari's office for further instructions. You can also try Dr. Haro's office. Med/Other Pt SpecificInfo: Prescription(s) given Scripts Oxycodone-Acetaminophen (Percocet) 10-325 mg Tab 1 TAB PO Q6H Y for PAIN, #10 TAB 0 Refills Prov: Chandana Pearce MD 07/24/17 Cephalexin (Keflex) 500 Mg Cap 500 MG PO Q6H for Infection for 10 Days, #40 CAP 0 Refills Prov: Chandana Pearce MD 07/24/17 Sulfamethoxazole-Trimethoprim (Bactrim DS) 800-160 Mg Tab 1 TAB PO BID for Infection for 10 Days, #20 TAB 0 Refills Prov: Chandana Pearce MD 07/24/17 Disposition: 01 DISCHARGE HOME Condition: Stable Chandana Pearce MD Jul 24, 2017 21:07
[2017-07-24 21:16] LABS: AUTOMATED NEUTROPHIL # 2.6 TH/MM3 (1.8-7.7); BASOPHIL # 0.1 TH/MM3 (0-0.2); BASOPHIL % 0.9 % (0.0-2.0); EOSINOPHIL # 0.2 TH/MM3 (0-0.4); HEMATOCRIT 42.2 % (35.0-46.0); HEMOGLOBIN 14.3 GM/DL (11.6-15.3); LYMPHOCYTE # 3.4 TH/MM3 (1.0-4.8); MEAN CELL VOLUME 89.8 FL (80.0-100.0); MEAN CORPUSCULAR HEMOGLOBIN 30.5 PG (27.0-34.0); MEAN PLATELET VOLUME 7.7 FL (7.0-11.0); MONO % 7.3 % (0.0-8.0); MONOCYTE # 0.5 TH/MM3 (0-0.9); NEUT % 38.8 % (16.0-70.0); PLATELET COUNT 278 TH/MM3 (150-450); RED CELL DISTRIBUTION WIDTH 13.2 % (11.6-17.2); WHITE BLOOD COUNT 6.7 TH/MM3 (4.0-11.0)
[2017-07-24 21:34] LABS: INTERNATIONAL NORMALIZED RATIO 2.4 RATIO; PROTHROMBIN TIME - PATIENT 24.4 SEC (9.8-11.6)
[2017-07-24 21:42] LABS: ALBUMIN 3.7 GM/DL (3.4-5.0); AST (GOT) 14 U/L (15-37); BICARBONATE 22.8 MEQ/L (21.0-32.0); BLOOD UREA NITROGEN 11 MG/DL (7-18); CALCIUM 9.1 MG/DL (8.5-10.1); CHLORIDE 108 MEQ/L (98-107); CREATININE 0.69 MG/DL (0.50-1.00); GLOMERULAR FILTRATION RATE 89 ML/MIN (>89); GLUCOSE,RANDOM 95 MG/DL (74-106); SODIUM (NA) 139 MEQ/L (136-145)
[2017-07-24 21:43] LABS: ALT (GPT) 22 U/L (10-53); C-REACTIVE PROTEIN 0.98 MG/DL (0.00-0.30)
[2017-07-24 21:45] LABS: ALKALINE PHOSPHATASE 66 U/L (45-117); TOTAL BILIRUBIN ADULT 0.2 MG/DL (0.2-1.0)
[2017-07-24] MEDS ORDERED: CEPH-460 PO (22:38)
[2017-07-24] MEDS ORDERED: BACT800T5 PO (22:38)
[2017-07-24] MEDS ORDERED: PERC10TA27 PO (22:38)
--- NOTE | 2017-07-26 00:22 | EKG ---
Date Performed: 07/24/2017 Time Performed: 21:33:31 PTAGE: 52 years EKG: Sinus rhythm NORMAL ECG Since the prior tracing, there has been no significant change DOCTOR: Stacy Martines Interpretating Date/Time 07/26/2017 00:21:29
== END 2017-07-24 23:37 | disposition home or self-care (01) ==
LOC: NEPD 17:28
DX: G89.18 Other acute postprocedural pain (principal); L03.032 Cellulitis of left toe; R56.9 Unspecified convulsions; K21.9 Gastro-esophageal reflux disease without esophagitis; J44.9 Chronic obstructive pulmonary disease, unspecified; F12.90 Cannabis use, unspecified, uncomplicated; I25.2 Old myocardial infarction; F41.8 Other specified anxiety disorders; R05 Cough
CPT/HCPCS: 80053; 85025; 85610; 85652; 85730; 86140; 93005; 96374; 99284; J2270

== ENCOUNTER 2017-07-27 18:41 | Emergency (ER) | payer MEDICARE, MEDICAID ==
[~2017-07-27] VITALS: Ht 167.6 cm; Wt 122.5 kg
[~2017-07-27 18:41] MED LIST changes: +BACT800T5 PO; +CEPH-460 PO; -ENOX30P SQ
[2017-07-27 18:44] VITALS: BP 146/91; PULSE 76; RESP 16; TEMP 98.1; O2SAT 95
[2017-07-27 20:07] LABS: AUTOMATED NEUTROPHIL # 2.7 TH/MM3 (1.8-7.7); BASOPHIL # 0.1 TH/MM3 (0-0.2); BASOPHIL % 1.1 % (0.0-2.0); EOSINOPHIL # 0.2 TH/MM3 (0-0.4); EOSINOPHIL % 3.4 % (0.0-4.0); HEMATOCRIT 39.9 % (35.0-46.0); HEMOGLOBIN 13.5 GM/DL (11.6-15.3); LYMPH % 46.5 % (9.0-44.0); LYMPHOCYTE # 3.1 TH/MM3 (1.0-4.8); MEAN CELL VOLUME 89.9 FL (80.0-100.0); MEAN CORPUSCULAR HEMOGLOBIN 30.3 PG (27.0-34.0); MEAN CORPUSCULAR HGB CONC 33.7 % (32.0-36.0); MEAN PLATELET VOLUME 7.8 FL (7.0-11.0); MONO % 8.1 % (0.0-8.0); MONOCYTE # 0.5 TH/MM3 (0-0.9); NEUT % 40.9 % (16.0-70.0); PLATELET COUNT 268 TH/MM3 (150-450); RED BLOOD COUNT 4.44 MIL/MM3 (4.00-5.30); RED CELL DISTRIBUTION WIDTH 13.1 % (11.6-17.2); WHITE BLOOD COUNT 6.7 TH/MM3 (4.0-11.0)
[2017-07-27 20:16] LABS: INTERNATIONAL NORMALIZED RATIO 2.7 RATIO; PROTHROMBIN TIME - PATIENT 27.4 SEC (9.8-11.6)
[2017-07-27 20:26] LABS: ALT (GPT) 25 U/L (10-53); C-REACTIVE PROTEIN 0.58 MG/DL (0.00-0.30)
[2017-07-27 20:28] LABS: ALBUMIN 3.5 GM/DL (3.4-5.0); ALKALINE PHOSPHATASE 61 U/L (45-117); AST (GOT) 21 U/L (15-37); BLOOD UREA NITROGEN 12 MG/DL (7-18); CALCIUM 8.7 MG/DL (8.5-10.1); CHLORIDE 109 MEQ/L (98-107); CREATININE 0.86 MG/DL (0.50-1.00); GLOMERULAR FILTRATION RATE 69 ML/MIN (>89); GLUCOSE,RANDOM 95 MG/DL (74-106); SODIUM (NA) 142 MEQ/L (136-145); TOTAL BILIRUBIN ADULT 0.2 MG/DL (0.2-1.0); TOTAL PROTEIN 7.3 GM/DL (6.4-8.2)
[2017-07-27] MEDS ORDERED: MORPHINE SULFATE 2 MG/ML INJ IV PUSH ONE ×2 (20:30→21:45)
--- NOTE | 2017-07-27 20:44 | PD ---
HPI Chief Complaint: Injury Time Seen by Provider: 19:20 Travel History International Travel<30 days: No Contact w/Intl Traveler<30days: No Traveled to known affect area: No History of Present Illness HPI 52-year-old female presents emergency department evaluation of her left foot after a bunion surgery that was completed July 18. States that she is due for follow-up July 21 but her physician was unable to see her. Says that her foot looks more swollen and is concerned there is an infection. States compliance with her antibiotics prescribed a couple of days ago from this ER with Bactrim and Keflex. States that in addition her foot is very painful. She is concerned because she has stairs to her house and she is having trouble walking. Patient denies fever, chills. States she has a follow-up with her cardiothoracic surgeon tomorrow. PFSH Past Medical History Hx Anticoagulant Therapy: Yes (COUMIDIN) Asthma: Yes Bipolar Disorder: Yes Anxiety: Yes Cancer: Yes (hx of cervical cancer) Cardiovascular Problems: No COPD: Yes Cerebrovascular Accident: Yes Diabetes: No Diminished Hearing: No Endocrine: No Gastrointestinal Disorders: Yes (reflux; IBS) GERD: Yes Genitourinary: Yes (INCONT. FROM MESH IMPLANT) Hepatitis: No Hiatal Hernia: Yes Hypertension: Yes Immune Disorder: No Medical other: Yes (strokes,seizures,low back problems,arthritis;Bipolar; depression) Musculoskeletal: Yes (OA) Neurologic: Yes (SEIZURES, 2 STROKES POOR MEMORY ) Psychiatric: Yes (OCD,. BIPOLAR, ANXIETY, DEPRESSION) Reproductive: No Respiratory: Yes (COPD, CHRONIC COUGH) Immunizations Current: Yes Seizures: Yes Thyroid Disease: No ?: Not : 5 Para: 5 Miscarriage: 0 : 0 Past Surgical History Abdominal Surgery: No AICD: No Body Medical Devices: LEFT LEG BERTA AND PLATE, BLADDER MESH, L WRIST HARDWARE Cardiac Surgery: No Section: Yes (X 5) Ear Surgery: No Endocrine Surgery: No Eye Surgery: No Genitourinary Surgery: Yes (BLADDER REPAIR WITH MESH IMPLANTS) Gynecologic Surgery: Yes (total hysterectomy,novasure ablation, X5) Joint Replacement: No Oral Surgery: No Pacemaker: No Thoracic Surgery: No Other Surgery: Yes Social History Alcohol Use: No Tobacco Use: No Substance Use: Yes (MARIJUANA) Allergies-Medications (Allergen,Severity, Reaction): Coded Allergies: adhesive tape (Verified Allergy, Unknown, paper tape, 07/27/17) Reported Meds & Prescriptions Reported Meds & Active Scripts Active Percocet (Oxycodone-Acetaminophen) 10-325 mg Tab 1 Tab PO Q6H PRN Keflex (Cephalexin) 500 Mg Cap 500 Mg PO Q6H 10 Days Bactrim DS (Sulfamethoxazole-Trimethoprim) 800-160 Mg Tab 1 Tab PO BID 10 Days Percocet (Oxycodone-Acetaminophen) 10-325 mg Tab 1 Tab PO Q4H PRN Reported Valium (Diazepam) 5 Mg Tab 5 Mg PO TID PRN Duloxetine DR (Duloxetine HCl) 60 Mg Capdr 60 Mg PO DAILY Seroquel (Quetiapine Fumarate) 300 Mg Tab 600 Mg PO HS Coumadin (Warfarin) 5 Mg Tab 5 Mg PO EXCEPT WED Warfarin 7.5 Mg Tab 7.5 Mg PO WED Topamax (Topiramate) 100 Mg Tab 100 Mg PO BID Propranolol (Propranolol HCl) 40 Mg Tab 40 Mg PO BID Depakote ER (Divalproex Sodium) 250 Mg Lan 750 Mg PO BID Vascepa (Icosapent) 1 Gm Cap 2 Gm PO BID Omeprazole 20 Mg Tab 20 Mg PO DAILY Myrbetriq (Mirabegron) 25 Mg Tab 25 Mg PO DAILY Review of Systems Except as stated in HPI: all other systems reviewed are Neg Physical Exam Narrative GENERAL: WD, WN in NAD SKIN: Focused skin assessment warm/dry. left lateral aspect of great toe. Erythematous to the immediate area of the sutures. Edema present without exudate. No lymph angiopathic spread. HEAD: Atraumatic. Normocephalic. EYES: Pupils equal and round. No scleral icterus. No injection or drainage. ENT: No nasal bleeding or discharge. Mucous membranes pink and moist. NECK: Trachea midline. No JVD. CARDIOVASCULAR: Regular rate and rhythm. No murmur appreciated. RESPIRATORY: No accessory muscle use. Clear to auscultation. Breath sounds equal bilaterally. GASTROINTESTINAL: Abdomen soft, non-tender, nondistended. MUSCULOSKELETAL: No obvious deformities. No clubbing. No cyanosis. NEUROLOGICAL: Awake and alert. No obvious cranial nerve deficits. Motor grossly within normal limits. Normal speech. PSYCHIATRIC: Appropriate mood and affect; insight and judgment normal. Data Data Last Documented VS Vital Signs Date Time Temp Pulse Resp B/P (MAP) Pulse Ox O2 Delivery O2 Flow Rate FiO2 07/27/17 21:05 78 107/62 (77) 96 07/27/17 18:44 98.1 16 Orders Orders Complete Blood Count With Diff (07/27/17 19:31) Comprehensive Metabolic Panel (07/27/17 19:31) Westergren Sedimentation Rate (07/27/17 19:31) C-Reactive Protein (Crp) (07/27/17 19:31) Act Partial Throm Time (Ptt) (07/27/17 19:31) Prothrombin Time / Inr (Pt) (07/27/17 19:31) Morphine Inj (Morphine Inj) (07/27/17 20:30) Ed Discharge Order (07/27/17 21:10) Morphine Inj (Morphine Inj) (07/27/17 21:45) Labs Laboratory Tests Test 07/27/17 19:40 White Blood Count 6.7 TH/MM3 Red Blood Count 4.44 MIL/MM3 Hemoglobin 13.5 GM/DL Hematocrit 39.9 % Mean Corpuscular Volume 89.9 FL Mean Corpuscular Hemoglobin 30.3 PG Mean Corpuscular Hemoglobin Concent 33.7 % Red Cell Distribution Width 13.1 % Platelet Count 268 TH/MM3 Mean Platelet Volume 7.8 FL Neutrophils (%) (Auto) 40.9 % Lymphocytes (%) (Auto) 46.5 % Monocytes (%) (Auto) 8.1 % Eosinophils (%) (Auto) 3.4 % Basophils (%) (Auto) 1.1 % Neutrophils # (Auto) 2.7 TH/MM3 Lymphocytes # (Auto) 3.1 TH/MM3 Monocytes # (Auto) 0.5 TH/MM3 Eosinophils # (Auto) 0.2 TH/MM3 Basophils # (Auto) 0.1 TH/MM3 CBC Comment DIFF FINAL Differential Comment Erythrocyte Sedimentation Rate 9 mm/hr Prothrombin Time 27.4 SEC Prothromb Time International Ratio 2.7 RATIO Activated Partial Thromboplast Time 36.9 SEC Blood Urea Nitrogen 12 MG/DL Creatinine 0.86 MG/DL Random Glucose 95 MG/DL Total Protein 7.3 GM/DL Albumin 3.5 GM/DL Calcium Level 8.7 MG/DL Alkaline Phosphatase 61 U/L Aspartate Amino Transf (AST/SGOT) 21 U/L Alanine Aminotransferase (ALT/SGPT) 25 U/L Total Bilirubin 0.2 MG/DL Sodium Level 142 MEQ/L Potassium Level 3.8 MEQ/L Chloride Level 109 MEQ/L Carbon Dioxide Level 26.0 MEQ/L Anion Gap 7 MEQ/L Estimat Glomerular Filtration Rate 69 ML/MIN C-Reactive Protein 0.58 MG/DL MDM Medical Decision Making Medical Screen Exam Complete: Yes Emergency Medical Condition: Yes Differential Diagnosis Left great toe cellulitis, status post bunionectomy, left great toe abscess Narrative Course 52-year-old female presents emergency department evaluation of her left foot after a bunion surgery that was completed July 18. States that she is due for follow-up July 21 but her physician was unable to see her. Says that her foot looks more swollen and is concerned there is an infection. States compliance with her antibiotics prescribed a couple of days ago from this ER with Bactrim and Keflex. States that in addition her foot is very painful. She is concerned because she has stairs to her house and she is having trouble walking. Patient denies fever, chills. States she has a follow-up with her cardiothoracic surgeon tomorrow. Vital sign stable. Patient showed me a picture of her foot from the ER evaluation several days ago. It appears that the foot is less swollen and less erythematous today. Her left bunionectomy site appears mildly erythematous and mildly edematous. No exudate. Sutures in place without dehiscence. Neurovascularly intact and tender to palpation. Vital signs stable, afebrile. Laboratory Tests Test 07/27/17 19:40 White Blood Count 6.7 TH/MM3 Red Blood Count 4.44 MIL/MM3 Hemoglobin 13.5 GM/DL Hematocrit 39.9 % Mean Corpuscular Volume 89.9 FL Mean Corpuscular Hemoglobin 30.3 PG Mean Corpuscular Hemoglobin Concent 33.7 % Red Cell Distribution Width 13.1 % Platelet Count 268 TH/MM3 Mean Platelet Volume 7.8 FL Neutrophils (%) (Auto) 40.9 % Lymphocytes (%) (Auto) 46.5 % Monocytes (%) (Auto) 8.1 % Eosinophils (%) (Auto) 3.4 % Basophils (%) (Auto) 1.1 % Neutrophils # (Auto) 2.7 TH/MM3 Lymphocytes # (Auto) 3.1 TH/MM3 Monocytes # (Auto) 0.5 TH/MM3 Eosinophils # (Auto) 0.2 TH/MM3 Basophils # (Auto) 0.1 TH/MM3 CBC Comment DIFF FINAL Differential Comment Erythrocyte Sedimentation Rate 9 mm/hr Prothrombin Time 27.4 SEC Prothromb Time International Ratio 2.7 RATIO Activated Partial Thromboplast Time 36.9 SEC Blood Urea Nitrogen 12 MG/DL Creatinine 0.86 MG/DL Random Glucose 95 MG/DL Total Protein 7.3 GM/DL Albumin 3.5 GM/DL Calcium Level 8.7 MG/DL Alkaline Phosphatase 61 U/L Aspartate Amino Transf (AST/SGOT) 21 U/L Alanine Aminotransferase (ALT/SGPT) 25 U/L Total Bilirubin 0.2 MG/DL Sodium Level 142 MEQ/L Potassium Level 3.8 MEQ/L Chloride Level 109 MEQ/L Carbon Dioxide Level 26.0 MEQ/L Anion Gap 7 MEQ/L Estimat Glomerular Filtration Rate 69 ML/MIN C-Reactive Protein 0.58 MG/DL Her ESR on July 24 was 13, it is 9 today. Her CRP is 0.98, today is 0.58. No leukocytosis present. Appears that patient's infection is resolving. Patient should continue her Bactrim and Keflex as they appear to be resolving her infection. Patient advised to elevate her leg, consider compression to reduce swelling. A total of 4 mg morphine administered for her pain. Patient request pain medication at discharge today. After review of the EFORSCE , it appears that patient has been prescribed multiple courses of pain medications by multiple doctors over the last year. It appears that she has been prescribed medication by her primary care physician and an apparent pain management doctor. I will not be prescribing patient opiate pain medications today. Patient is advised to take Tylenol for pain. Advised to follow-up with her cardiothoracic surgeon as originally planned and follow his instruction. I spoke with the family at depth regarding the labs and findings today. Patient should follow-up with her cardiothoracic surgeon. Diagnosis Primary Impression: Cellulitis of toe of left foot Referrals: [facility] Additional Instructions: Follow-up with a cardiothoracic surgeon within the next 2-3 days. Keep the foot elevated to reduce swelling and pain. Continue Bactrim and Keflex as originally prescribed. You may take Tylenol for pain. Disposition: 01 DISCHARGE HOME Condition: Stable Kallie Soto Jul 27, 2017 20:44
[2017-07-27 21:05] VITALS: BP 107/62
== END 2017-07-27 22:15 | disposition home or self-care (01) ==
LOC: NEPC 18:41
DX: L03.032 Cellulitis of left toe (principal)
CPT/HCPCS: 80053; 85025; 85610; 85652; 85730; 86140; 96374; 96376; 99284; J2270

== ENCOUNTER 2017-11-18 19:10 | Emergency (ER) | payer MEDICARE, OTHER ==
[~2017-11-18] VITALS: Ht 162.6 cm; Wt 125.0 kg
[2017-11-18 19:18] VITALS: BP 175/94; PULSE 79; RESP 16; TEMP 98.6; O2SAT 96
[2017-11-18] MEDS ORDERED: AMOX500C PO (19:31)
[2017-11-18] MEDS ORDERED: PERI0.126 SWISH-SPIT (19:31)
[2017-11-18] MEDS ORDERED: TYLE325T PO (19:31)
--- NOTE | 2017-11-18 19:31 | PD ---
HPI Chief Complaint: Oral / Dental Pain or Problem Time Seen by Provider: 19:22 Travel History International Travel<30 days: No Contact w/Intl Traveler<30days: No Traveled to known affect area: No History of Present Illness HPI 52-year-old female presents to the emergency department with complaint of right upper, left upper, right lower dental pain for the past 1-1/2 weeks and is requesting pain medication and antibiotics. She has an appointment to have her teeth pulled this month on November 26 by [facility]. Says her gums are painful and swollen. Denies fever, vomiting. Denies sore throat, difficulty swallowing, unusual drooling. Says she had a fever of 101.0 yesterday. Has been taking Tylenol for symptom management. Symptoms are mild to moderate in severity. Constantly aggravated. No known relieving factors. Family care provider is Dr. Hassan. History of seizures and takes medication, strokes 2 and is on Coumadin, COPD, Crohn's disease, GERD. No known drug drug allergies. Has no other medical complaints. No other modifying factors or associated signs and symptoms. PFSH Past Medical History Hx Anticoagulant Therapy: Yes (COUMIDIN) Asthma: Yes Bipolar Disorder: Yes Anxiety: Yes Cancer: Yes (hx of cervical cancer) Cardiovascular Problems: No COPD: Yes Cerebrovascular Accident: Yes Diabetes: No Diminished Hearing: No Endocrine: No Gastrointestinal Disorders: Yes (reflux; IBS) GERD: Yes Genitourinary: Yes (INCONT. FROM MESH IMPLANT) Hepatitis: No Hiatal Hernia: Yes Hypertension: Yes Immune Disorder: No Medical other: Yes (strokes,seizures,low back problems,arthritis;Bipolar; depression) Musculoskeletal: Yes (OA) Neurologic: Yes (SEIZURES, 2 STROKES POOR MEMORY ) Psychiatric: Yes (OCD,. BIPOLAR, ANXIETY, DEPRESSION) Reproductive: No Respiratory: Yes (COPD, CHRONIC COUGH) Immunizations Current: Yes Seizures: Yes Thyroid Disease: No Tetanus Vaccination: Unknown Influenza Vaccination: No ?: Not : 5 Para: 5 Miscarriage: 0 : 0 Past Surgical History Abdominal Surgery: No AICD: No Body Medical Devices: LEFT LEG BERTA AND PLATE, BLADDER MESH, L WRIST HARDWARE Cardiac Surgery: No Section: Yes (X 5) Ear Surgery: No Endocrine Surgery: No Eye Surgery: No Genitourinary Surgery: Yes (BLADDER REPAIR WITH MESH IMPLANTS) Gynecologic Surgery: Yes (total hysterectomy,novasure ablation, X5) Joint Replacement: No Oral Surgery: No Pacemaker: No Thoracic Surgery: No Other Surgery: Yes Social History Alcohol Use: No Tobacco Use: No Substance Use: Yes (MARIJUANA) Allergies-Medications (Allergen,Severity, Reaction): Coded Allergies: adhesive tape (Verified Allergy, Unknown, paper tape, 07/27/17) Reported Meds & Prescriptions Reported Meds & Active Scripts Active Amoxicillin 500 Mg Cap 500 Mg PO BID 10 Days Tylenol (Acetaminophen) 325 Mg Tab 650 Mg PO Q6H PRN Peridex Liq (Chlorhexidine Gluconate (Mouth) Liq) 0.12% Soln 15 Ml SWISH-SPIT BID 10 Days Percocet (Oxycodone-Acetaminophen) 10-325 mg Tab 1 Tab PO Q6H PRN Keflex (Cephalexin) 500 Mg Cap 500 Mg PO Q6H 10 Days Bactrim DS (Sulfamethoxazole-Trimethoprim) 800-160 Mg Tab 1 Tab PO BID 10 Days Percocet (Oxycodone-Acetaminophen) 10-325 mg Tab 1 Tab PO Q4H PRN Reported Valium (Diazepam) 5 Mg Tab 5 Mg PO TID PRN Duloxetine DR (Duloxetine HCl) 60 Mg Capdr 60 Mg PO DAILY Seroquel (Quetiapine Fumarate) 300 Mg Tab 600 Mg PO HS Coumadin (Warfarin) 5 Mg Tab 5 Mg PO EXCEPT WED Warfarin 7.5 Mg Tab 7.5 Mg PO WED Topamax (Topiramate) 100 Mg Tab 100 Mg PO BID Propranolol (Propranolol HCl) 40 Mg Tab 40 Mg PO BID Depakote ER (Divalproex Sodium) 250 Mg Lan 750 Mg PO BID Vascepa (Icosapent) 1 Gm Cap 2 Gm PO BID Omeprazole 20 Mg Tab 20 Mg PO DAILY Myrbetriq (Mirabegron) 25 Mg Tab 25 Mg PO DAILY Review of Systems Except as stated in HPI: all other systems reviewed are Neg Physical Exam Narrative GENERAL: Well-nourished, well-developed female patient, in no acute distress; afebrile, nontoxic-appearing SKIN: Warm and dry. HEAD: Atraumatic. Normocephalic. No facial edema, erythema, tenderness on palpation. No lymphadenopathy. EYES: Pupils equal and round. No scleral icterus. No injection or drainage. ENT: Mucosa pink and moist. No erythema or exudates. No uvular edema. No uvular , palatal, or tonsillar deviation. Airway patent. EARS: Bilateral pinnae and external canals appear within normal limits. Bilateral tympanic membranes without erythema, dullness or perforation. MOUTH: Mucous membranes moist, no lesions, tongue and gums appear normal. Tenderness on palpation to right lower and upper dentition, and left upper dentition; I cannot determine exactly what tooth or teeth are painful. Surrounding gingiva is without erythema, edema, drainage; there is some whitish whitish film noted to the upper and lower gingiva. no obvious abscess noted. No trismus. Patient is able to open and close her mouth completely without complication. NECK: Trachea midline. No lymphadenopathy. CARDIOVASCULAR: Regular rate. RESPIRATORY: No accessory muscle use. GASTROINTESTINAL: Obese. MUSCULOSKELETAL: No obvious deformities. No clubbing. No cyanosis. No edema. NEUROLOGICAL: Awake and alert. Oriented 3. No obvious cranial nerve deficits. Motor grossly within normal limits. Normal speech. PSYCHIATRIC: Appropriate mood and affect; insight and judgment normal. Data Data Last Documented VS Vital Signs Date Time Temp Pulse Resp B/P (MAP) Pulse Ox O2 Delivery O2 Flow Rate FiO2 11/18/17 19:18 98.6 79 16 175/94 (121) 96 Orders Orders Ed Discharge Order (11/18/17 19:31) [facility] Medical Decision Making Medical Screen Exam Complete: Yes Emergency Medical Condition: Yes Medical Record Reviewed: Yes Differential Diagnosis Dental abscess, gingivitis, dentalgia, dental caries Narrative Course 52-year-old female with dental pain. No facial edema or erythema. She is afebrile and nontoxic-appearing. She reports having fever of 101.0 yesterday. She takes Coumadin for history of strokes. She has an appointment with [facility] in November 26 and says she is getting her teeth pulled. Patient is requesting antibiotics and pain medication. Tylenol, Peridex mouth rinse, amoxicillin prescribed for home. Instructed patient to follow up with primary care provider. Patient verbalizes understanding and agreement with treatment plan. Patient is medically cleared and stable for discharge. Discussed reasons to return to the emergency department. Patient agrees with treatment plan. The patients vital signs are stable and the patient is stable for outpatient follow-up and treatment. Patient discharged home, stable and in no acute distress. Diagnosis Primary Impression: Pain, dental Referrals: Dentist Primary Care Physician Patient Instructions: Dental Abscess (ED), Dental Caries (ED), General Instructions, Gingivitis (ED), Toothache (ED) Additional Instructions: Complete full course of antibiotics Ibuprofen or Tylenol as directed and as needed to reduce pain and inflammation Use Peridex as directed for oral hygiene Warm or cool compresses to the affected area Follow-up with dentist Follow-up with primary care provider Return to emergency department immediately with worsening of symptoms Med/Other Pt SpecificInfo: Prescription(s) given Scripts Amoxicillin (Amoxicillin) 500 Mg Cap 500 MG PO BID for Infection for 10 Days, #20 CAP 0 Refills Prov: Martina Christopher 11/18/17 Acetaminophen (Tylenol) 325 Mg Tab 650 MG PO Q6H Y for PAIN SCALE 1 TO 10, #20 TAB 0 Refills Prov: Martina Christopher 11/18/17 Chlorhexidine Gluconate (Mouth) Liq (Peridex Liq) 0.12% Soln 15 ML SWISH-SPIT BID for 10 Days, #300 ML 0 Refills Prov: Martina Christopher 11/18/17 Disposition: 01 DISCHARGE HOME Condition: Stable Martina Christopher Nov 18, 2017 19:31
== END 2017-11-18 19:40 | disposition home or self-care (01) ==
LOC: NEPK 19:10
DX: K08.89 Other specified disorders of teeth and supporting structures (principal); F12.90 Cannabis use, unspecified, uncomplicated; I10 Essential (primary) hypertension; K21.9 Gastro-esophageal reflux disease without esophagitis; F31.9 Bipolar disorder, unspecified; J44.9 Chronic obstructive pulmonary disease, unspecified; Z79.01 Long term (current) use of anticoagulants; Z85.41 Personal history of malignant neoplasm of cervix uteri; Z86.73 Personal history of transient ischemic attack (TIA), and cerebral infarction without residual deficits
CPT/HCPCS: 99283